=== PATIENT | male | born 1960 | race African-American/Black ===

== ENCOUNTER → 2016-12-25 | Outpatient (CLI) | payer OTHER ==
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
== END ==
LOC: HRAD 15:26
DX: S09.90XA Unspecified injury of head, initial encounter (principal); Y09 Assault by unspecified means
CPT/HCPCS: 70260; 70450